=== PATIENT | female | born 1990 | race African-American/Black ===

== ENCOUNTER 2021-05-14 23:19 | Emergency (ER) | payer OTHER ==
[~2021-05-14] VITALS: Ht 165.1 cm; Wt 72.6 kg
[2021-05-14] MEDS ORDERED: SINGULAIR 10 MG10 M1 PO (23:39)
[2021-05-14] MEDS ORDERED: PROAIR HFA8.5 GM INH (23:39)
[2021-05-14] MEDS ORDERED: RAYOS5 MG PO (23:40)
[2021-05-15 03:00] VITALS: BP 106/49
== END 2021-05-15 03:00 | disposition home or self-care (01) ==
LOC: M.ERS 23:19
DX: R07.89 Other chest pain (principal); Z20.822 Contact with and (suspected) exposure to COVID-19; R09.89 Other specified symptoms and signs involving the circulatory and respiratory systems; J45.909 Unspecified asthma, uncomplicated; Z90.49 Acquired absence of other specified parts of digestive tract